=== PATIENT | female | born 1995 | race Two or more races ===

== ENCOUNTER 2022-08-12 11:42 | Emergency (ER) | payer MEDICAID ==
[~2022-08-12] VITALS: Ht 160 cm; Wt 91.7 kg
[2022-08-12 12:44] VITALS: BP 133/60
[2022-08-12] MEDS ORDERED: methylPREDNISolone SOD SUCC 125 MG/2 ML VL IM ONE (13:30)
[2022-08-12] MEDS ORDERED: ALBUTEROL SULF 2.5 MG/0.5ML(0.5%) NEB SOLN NEB ONE (13:30)
[2022-08-12] MEDS ORDERED: IPRATROPIUM BROM 0.5 MG/2.5ML INH SOL NEB ONE (13:30)
[2022-08-12] MEDS ORDERED: ALBUAER3 IN (13:35)
[2022-08-12] MEDS ORDERED: PRED20TA2 PO (13:35)
== END 2022-08-12 14:02 | disposition home or self-care (01) ==
LOC: ER 11:42
DX: J45.901 Unspecified asthma with (acute) exacerbation (principal); F12.10 Cannabis abuse, uncomplicated
CPT/HCPCS: 94640; 96372; 99283; J2930; J7644

== ENCOUNTER 2022-12-10 11:10 | Inpatient (IN) | payer MEDICAID ==
[~2022-12-10] VITALS: Ht 160 cm; Wt 93.9 kg
[~2022-12-10 11:10] MED LIST: ALBUAER3 IN; PRED20TA2 PO
[2022-12-10] MEDS ORDERED: methylPREDNISolone SOD SUCC 125 MG/2 ML VL IV ONE (11:15)
[2022-12-10] MEDS ORDERED: ALBUTEROL SULF 2.5 MG/0.5ML(0.5%) NEB SOLN NEB ONE (11:15)
[2022-12-10] MEDS ORDERED: IPRATROPIUM BROM 0.5 MG/2.5ML INH SOL NEB ONE ×2 (11:15→13:15)
[2022-12-10] MEDS ORDERED: ALBUTEROL MEDNEB 2.5 mg/3ml NEB ONE ×3 (11:28→21:24)
[2022-12-10 12:03] LABS: Alanine Aminotransferase 29 U/L (13-56); Albumin 4.3 g/dL (3.4-5.0); Anion Gap 8 (5-15); Calcium 9.5 mg/dL (8.5-10.1); Carbon Dioxide 24 mmol/L (21-32); Chloride 111 mmol/L (98-107); GFR African American 109 mL/min; GFR Non-African American 90 mL/min; Glucose 99 mg/dL (74-106); Potassium 3.5 mmol/L (3.5-5.1); Sodium 143 mmol/L (136-145)
[2022-12-10 12:06] LABS: Basophils # (auto) 0.1 10 ^3/uL (0-0.2); Basophils % (auto) 0.5 % (0.0-2.0); Eosinophils # (auto) 0.4 10 ^3/uL (0-0.8); Eosinophils % (auto) 2.6 % (0.0-7.0); Hematocrit 47.4 % (36.0-46.0); Hemoglobin 16.1 g/dL (12.2-16.2); Lymphocytes # (auto) 1.5 10 ^3/uL (0.4-5.4); Lymphocytes % (auto) 10.2 % (10.0-50.0); Mean Corpuscular Hgb Conc. 33.9 g/dL (32.0-36.0); Mean Corpuscular Volume 88.4 fL (80.0-100.0); Monocytes # (auto) 0.5 10 ^3/uL (0-1.3); Monocytes % (auto) 3.5 % (0.0-12.0); Neutrophils # (auto) 12.3 10 ^3/uL (1.6-8.6); Neutrophils % (auto) 83.2 % (37.0-80.0); Red Blood Cells 5.36 10^6/uL (4.0-5.20); Red Cell Distribution Width 13.3 % (11.8-14.3); White Blood Cell 14.8 10^3/uL (4.4-10.8)
[2022-12-10 12:08] LABS: Alkaline Phosphatase 79 U/L (45-117); Aspartate Aminotransferase 16 U/L (15-37); BUN/Creatinine Ratio 12.3; Bilirubin, Total 0.3 mg/dL (0.2-1.0); Blood Urea Nitrogen 10 mg/dL (7-18); Total Protein 8.6 g/dL (6.4-8.2)
[2022-12-10] MEDS ORDERED: LEVALBUTEROL HCL 1.25 MG/3 ML NEB NEB ONE (13:15)
[2022-12-10] MEDS ORDERED: SODIUM CHLORIDE 0.9% 1,000 ML IV ONE (13:30)
[2022-12-10] MEDS ORDERED: MAGNESIUM SULFATE 1GM/100ML 100 ML IV ONE (13:30)
[2022-12-10] MEDS ORDERED: AZITHROMYCIN 500MG/ 250ML 250 ML IV ONE (17:15)
[2022-12-10] MEDS ORDERED: ALBUTEROL SULF 2.5 MG/0.5ML(0.5%) NEB SOLN NEB PRN (17:15)
[2022-12-10] MEDS ORDERED: cefTRIAXone 1GM/50ML D5W 50 ML IV ONE (17:15)
[2022-12-10 17:28] LABS: Urine Bacteria MOD /hpf (None Seen); Urine Blood Negative /uL (Negative); Urine WBC <1 /hpf (0 - 5)
[2022-12-10] MEDS ORDERED: KETOROLAC TROMETH 30 MG/ML 1ML VIAL IV PRN (17:45)
[2022-12-10] MEDS: IPRATROPIUM BROM 0.5 MG/2.5ML INH SOL NEB SCH ×2 (17:54→21:27)
[2022-12-10] MEDS: ALBUTEROL SULF 2.5 MG/0.5ML(0.5%) NEB SOLN NEB SCH ×2 (17:54→21:27)
[2022-12-10 18:32] LABS: Cholesterol 184 mg/dL (< 200)
[2022-12-10 18:35] LABS: HDL Cholesterol 54 mg/dL (40-59); LDL Cholesterol 129 mg/dL (< 100); Triglycerides 90 mg/dL (< 150)
[2022-12-10] MEDS ORDERED: ACETAMINOPHEN 325 MG TAB PO PRN (18:45)
[2022-12-10] MEDS: SODIUM CHLORIDE 0.9% 1,000 ML IV SCH (19:05)
[2022-12-10 19:30] VITALS: BP 123/61
[2022-12-10] MEDS: methylPREDNISolone SOD SUCC 125 MG/2 ML VL IV SCH (21:36)
[2022-12-11] MEDS ORDERED: ALBUTEROL MEDNEB 2.5 mg/3ml NEB ONE ×6 (01:55→21:51)
[2022-12-11] MEDS: ALBUTEROL SULF 2.5 MG/0.5ML(0.5%) NEB SOLN NEB SCH ×6 (01:56→22:34)
[2022-12-11] MEDS: IPRATROPIUM BROM 0.5 MG/2.5ML INH SOL NEB SCH ×6 (01:56→22:33)
[2022-12-11 05:20] LABS: Albumin 3.5 g/dL (3.4-5.0); BUN/Creatinine Ratio 18.2; Calcium 8.7 mg/dL (8.5-10.1); Potassium 3.7 mmol/L (3.5-5.1)
[2022-12-11 05:25] LABS: Basophils # (auto) 0 10 ^3/uL (0-0.2); Basophils % (auto) 0.2 % (0.0-2.0); Eosinophils # (auto) 0 10 ^3/uL (0-0.8); Hematocrit 40.2 % (36.0-46.0); Hemoglobin 13.5 g/dL (12.2-16.2); Lymphocytes # (auto) 1.1 10 ^3/uL (0.4-5.4); Lymphocytes % (auto) 8.1 % (10.0-50.0); Mean Corpuscular Hemoglobin 30.1 pg (28.0-32.0); Mean Corpuscular Hgb Conc. 33.6 g/dL (32.0-36.0); Mean Corpuscular Volume 89.4 fL (80.0-100.0); Monocytes # (auto) 0.2 10 ^3/uL (0-1.3); Monocytes % (auto) 1.6 % (0.0-12.0); Neutrophils # (auto) 12.7 10 ^3/uL (1.6-8.6); Neutrophils % (auto) 90.1 % (37.0-80.0); Red Blood Cells 4.49 10^6/uL (4.0-5.20); Red Cell Distribution Width 13.8 % (11.8-14.3); White Blood Cell 14.1 10^3/uL (4.4-10.8)
[2022-12-11 05:31] LABS: Bilirubin, Total 0.3 mg/dL (0.2-1.0); Total Protein 7.4 g/dL (6.4-8.2)
[2022-12-11] MEDS: SODIUM CHLORIDE 0.9% 1,000 ML IV SCH (12:00)
[2022-12-11] MEDS: AZITHROMYCIN 500MG/ 250ML 250 ML IV SCH (12:30)
[2022-12-11] MEDS: methylPREDNISolone SOD SUCC 125 MG/2 ML VL IV SCH ×2 (12:30→22:13)
[2022-12-11] MEDS: cefTRIAXone 1GM/50ML D5W 50 ML IV SCH (12:47)
[2022-12-11 22:00] VITALS: BP 132/76
[2022-12-12] MEDS ORDERED: ALBUTEROL MEDNEB 2.5 mg/3ml NEB ONE ×6 (01:40→21:38)
[2022-12-12] MEDS: IPRATROPIUM BROM 0.5 MG/2.5ML INH SOL NEB SCH ×6 (02:05→22:13)
[2022-12-12] MEDS: ALBUTEROL SULF 2.5 MG/0.5ML(0.5%) NEB SOLN NEB SCH ×6 (02:05→22:13)
[2022-12-12 05:00] VITALS: BP 121/69
[2022-12-12] MEDS: cefTRIAXone 1GM/50ML D5W 50 ML IV SCH (08:31)
[2022-12-12 08:54] VITALS: BP 118/69
[2022-12-12] MEDS: AZITHROMYCIN 500MG/ 250ML 250 ML IV SCH (10:48)
[2022-12-12] MEDS: methylPREDNISolone SOD SUCC 125 MG/2 ML VL IV SCH ×2 (10:48→21:59)
[2022-12-12 13:05] VITALS: BP 127/76
[2022-12-12 16:54] VITALS: BP 136/74
[2022-12-12 22:00] VITALS: BP 117/65
[2022-12-13] MEDS ORDERED: ALBUTEROL MEDNEB 2.5 mg/3ml NEB ONE ×6 (01:50→22:37)
[2022-12-13] MEDS: IPRATROPIUM BROM 0.5 MG/2.5ML INH SOL NEB SCH ×5 (01:54→18:09)
[2022-12-13] MEDS: ALBUTEROL SULF 2.5 MG/0.5ML(0.5%) NEB SOLN NEB SCH ×5 (01:54→18:09)
[2022-12-13 04:52] VITALS: BP 123/68
[2022-12-13 06:36] LABS: Basophils # (auto) 0 10 ^3/uL (0-0.2); Basophils % (auto) 0.1 % (0.0-2.0); Eosinophils # (auto) 0 10 ^3/uL (0-0.8); Hematocrit 40.9 % (36.0-46.0); Hemoglobin 13.7 g/dL (12.2-16.2); Lymphocytes # (auto) 1.6 10 ^3/uL (0.4-5.4); Lymphocytes % (auto) 11.1 % (10.0-50.0); Mean Corpuscular Hgb Conc. 33.4 g/dL (32.0-36.0); Mean Corpuscular Volume 89.8 fL (80.0-100.0); Monocytes # (auto) 0.4 10 ^3/uL (0-1.3); Monocytes % (auto) 2.9 % (0.0-12.0); Neutrophils # (auto) 12.5 10 ^3/uL (1.6-8.6); Neutrophils % (auto) 85.9 % (37.0-80.0); Red Blood Cells 4.55 10^6/uL (4.0-5.20); Red Cell Distribution Width 13.6 % (11.8-14.3); White Blood Cell 14.6 10^3/uL (4.4-10.8)
[2022-12-13] MEDS ORDERED: ALBU1.257 IN (06:42)
[2022-12-13 06:55] LABS: Calcium 9.2 mg/dL (8.5-10.1); Potassium 4.2 mmol/L (3.5-5.1)
[2022-12-13 06:57] LABS: BUN/Creatinine Ratio 22.7
[2022-12-13 09:00] VITALS: BP 131/75
[2022-12-13] MEDS: cefTRIAXone 1GM/50ML D5W 50 ML IV SCH (09:09)
[2022-12-13] MEDS: methylPREDNISolone SOD SUCC 125 MG/2 ML VL IV SCH (11:46)
[2022-12-13 12:55] VITALS: BP 113/68
[2022-12-13] MEDS: AZITHROMYCIN 250 MG TAB PO SCH (13:00)
[2022-12-13 17:00] VITALS: BP 130/80
[2022-12-13 17:56] VITALS: BP 113/68
[2022-12-13 22:00] VITALS: BP 102/68
[2022-12-14] MEDS: ALBUTEROL SULF 2.5 MG/0.5ML(0.5%) NEB SOLN NEB SCH ×7 (00:28→22:00)
[2022-12-14] MEDS: IPRATROPIUM BROM 0.5 MG/2.5ML INH SOL NEB SCH ×7 (00:29→22:04)
[2022-12-14] MEDS ORDERED: ALBUTEROL MEDNEB 2.5 mg/3ml NEB ONE ×6 (02:03→22:03)
[2022-12-14 05:00] VITALS: BP 113/75
[2022-12-14 05:26] LABS: Basophils # (auto) 0.1 10 ^3/uL (0-0.2); Basophils % (auto) 0.4 % (0.0-2.0); Eosinophils # (auto) 0 10 ^3/uL (0-0.8); Hematocrit 43.2 % (36.0-46.0); Lymphocytes # (auto) 3.3 10 ^3/uL (0.4-5.4); Lymphocytes % (auto) 28.1 % (10.0-50.0); Mean Corpuscular Hemoglobin 29.4 pg (28.0-32.0); Mean Corpuscular Hgb Conc. 32.5 g/dL (32.0-36.0); Mean Corpuscular Volume 90.3 fL (80.0-100.0); Monocytes # (auto) 0.8 10 ^3/uL (0-1.3); Monocytes % (auto) 6.5 % (0.0-12.0); Neutrophils # (auto) 7.6 10 ^3/uL (1.6-8.6); Nucleated Red Blood Cells % 0.1 %; Red Blood Cells 4.78 10^6/uL (4.0-5.20); Red Cell Distribution Width 13.7 % (11.8-14.3); White Blood Cell 11.8 10^3/uL (4.4-10.8)
[2022-12-14 05:33] LABS: Calcium 8.8 mg/dL (8.5-10.1); Potassium 4.2 mmol/L (3.5-5.1)
[2022-12-14 05:35] LABS: BUN/Creatinine Ratio 22.2
[2022-12-14 08:58] VITALS: BP 119/70
[2022-12-14] MEDS: cefTRIAXone 1GM/50ML D5W 50 ML IV SCH (09:23)
[2022-12-14] MEDS: AZITHROMYCIN 250 MG TAB PO SCH (09:23)
[2022-12-14] MEDS ORDERED: predniSONE 20 MG TAB PO ONE (10:45)
[2022-12-14 13:00] VITALS: BP 116/73
[2022-12-14 17:00] VITALS: BP 125/77
[2022-12-14 22:00] VITALS: BP 120/60
[2022-12-15] MEDS ORDERED: ALBUTEROL MEDNEB 2.5 mg/3ml NEB ONE ×3 (02:07→10:25)
[2022-12-15] MEDS: IPRATROPIUM BROM 0.5 MG/2.5ML INH SOL NEB SCH ×3 (02:07→15:28)
[2022-12-15] MEDS: ALBUTEROL SULF 2.5 MG/0.5ML(0.5%) NEB SOLN NEB SCH ×3 (02:09→15:28)
[2022-12-15 05:00] VITALS: BP 121/82
[2022-12-15 06:09] LABS: Basophils # (auto) 0 10 ^3/uL (0-0.2); Basophils % (auto) 0.1 % (0.0-2.0); Eosinophils # (auto) 0.2 10 ^3/uL (0-0.8); Eosinophils % (auto) 1.3 % (0.0-7.0); Hematocrit 43.6 % (36.0-46.0); Hemoglobin 14.5 g/dL (12.2-16.2); Lymphocytes # (auto) 5.4 10 ^3/uL (0.4-5.4); Lymphocytes % (auto) 44.7 % (10.0-50.0); Mean Corpuscular Hemoglobin 30.1 pg (28.0-32.0); Mean Corpuscular Hgb Conc. 33.2 g/dL (32.0-36.0); Mean Corpuscular Volume 90.4 fL (80.0-100.0); Monocytes # (auto) 1.1 10 ^3/uL (0-1.3); Neutrophils # (auto) 5.4 10 ^3/uL (1.6-8.6); Neutrophils % (auto) 44.9 % (37.0-80.0); Nucleated Red Blood Cells % 0.1 %; Red Blood Cells 4.83 10^6/uL (4.0-5.20); Red Cell Distribution Width 13.6 % (11.8-14.3)
[2022-12-15 06:12] LABS: Calcium 8.3 mg/dL (8.5-10.1); Potassium 3.5 mmol/L (3.5-5.1)
[2022-12-15 06:15] LABS: BUN/Creatinine Ratio 22.6
[2022-12-15 09:00] VITALS: BP 125/75
[2022-12-15] MEDS: AZITHROMYCIN 250 MG TAB PO SCH (09:36)
[2022-12-15] MEDS: cefTRIAXone 1GM/50ML D5W 50 ML IV SCH (09:37)
[2022-12-15] MEDS ORDERED: predniSONE 20 MG TAB PO SCH (10:00)
[2022-12-15] MEDS ORDERED: PRED20TA2 PO (10:52)
[2022-12-15] MEDS ORDERED: AMOX500T86 PO (10:52)
[2022-12-15] MEDS ORDERED: ALBU1.257 IN (10:53)
[2022-12-15] MEDS ORDERED: ALBU108A14 IN (10:54)
[2022-12-15 12:57] VITALS: BP 113/71
== END 2022-12-15 15:00 | disposition home or self-care (01) | DRG 139 ==
LOC: ER 11:10 → EDBD 11:10 → OVERFLOW 18:42 → EAST 12-11 18:51
PROVIDERS: ADMIT Nurse Practitioner Family; ATTEND Internal Medicine Pulmonary Disease
DX: J18.9 Pneumonia, unspecified organism (principal); J96.01 Acute respiratory failure with hypoxia; J45.901 Unspecified asthma with (acute) exacerbation; E66.01 Morbid (severe) obesity due to excess calories; J20.9 Acute bronchitis, unspecified; J98.2 Interstitial emphysema; F17.200 Nicotine dependence, unspecified, uncomplicated; Z20.822 Contact with and (suspected) exposure to COVID-19; Z68.35 Body mass index [BMI] 35.0-35.9, adult
CPT/HCPCS: 36415; 71045; 71250; 80048; 80053; 80061; 81001; 83036; 84443; 84702; 85025; 85379; 87040; 87426; 87804; 94640; 96361; 96365; 96375; G0378; J0696; J1885

== ENCOUNTER → 2023-03-05 | Emergency (ER) | payer MEDICAID ==
[~2023-03-05] MED LIST changes: +ALBU1.257 IN; +ALBU108A14 IN; +AMOX500T86 PO
== END | disposition left against medical advice (07) ==
LOC: ER 22:18
DX: Z04.1 Encounter for examination and observation following transport accident (principal); Z53.21 Procedure and treatment not carried out due to patient leaving prior to being seen by health care provider